=== PATIENT | female | born 1945 | race Caucasian/White ===

== ENCOUNTER 2024-06-21 18:34 | Emergency (ER) | payer MEDICARE, BC, SELFPAY ==
--- NOTE | ~2024-06-21 | XR_ITS ---
EXAMINATION: [id number] DATE: 06/21/2024 19:06 INDICATION: Left rib pain post fall TECHNIQUE: A frontal inspiratory view of the chest and 3 views of the left ribs were obtained. COMPARISON: None FINDINGS: No rib fractures identified. Lungs are clear with no focal airspace opacities, pulmonary edema, pleur al effusion or pneumothorax. Heart size is normal. Mild thoracolumbar dextrocurvature with moderate s pondylosis. Paraspinal surgical clips at the left upper quadrant. IMPRESSION: 1. No rib fracture or acute cardiopulmonary disease. Reviewed, dictated and finalized at location A.
[2024-06-21 18:47] VITALS: BP 153/97; PULSE 67; RESP 14; TEMP 36.2; O2SAT 97
--- NOTE | 2024-06-21 18:49 | ED.GENADULT ---
HPI - General Adult General Chief complaint: Chest Pain Stated complaint: fall Source: patient Mode of arrival: ambulatory Limitations: no limitations History of Present Illness HPI narrative: 78-year-old female presented for complaint of left lateral rib pain after a fall 2 days ago. She reports the pain is worse when taking deep breath, coughing or sneezing etc.. Has been taking ibuprofen. Patient states she tripped while wearing how shoes, and landed with both arms outstretched but also struck the right lower lip on the floor. Endorses some bruising and mild swelling but denies any pain to the lip. Related Data Home Medications Medication Instructions Recorded Confirmed aspirin 81 mg capsule 81 mg PO DAILY 01/25/24 06/21/24 atorvastatin 20 mg tablet 20 mg PO DAILY 01/25/24 06/21/24 biotin 5,000 mcg chewable tablet 5,000 mcg PO DAILY 01/25/24 06/21/24 black cohosh root extract 40 mg 40 mg PO DAILY 01/25/24 06/21/24 capsule carvedilol 6.25 mg tablet 6.25 mg PO Q12H 01/25/24 06/21/24 cholecalciferol (vitamin D3) 25 25 mcg PO DAILY 01/25/24 06/21/24 mcg (1,000 unit) capsule dapagliflozin propanediol 5 mg 5 mg PO DAILY 01/25/24 06/21/24 tablet (Farxiga) fluticasone 250 mcg-salmeterol 50 1 inh inhalation BID 01/25/24 06/21/24 mcg/dose blistr powdr for inhalation (Wixela Inhub) magnesium carbonate 250 mg capsule 250 mg PO DAILY 01/25/24 06/21/24 multivitamin (One-A-Day Essential 1 tablet PO DAILY 01/25/24 06/21/24 tablet) sacubitril 24 mg-valsartan 26 mg 1 tablet PO BID 01/25/24 06/21/24 tablet (Entresto) sertraline 50 mg tablet 50 mg PO DAILY 01/25/24 06/21/24 spironolactone 25 mg tablet 25 mg PO DAILY 01/25/24 06/21/24 Allergies Allergy/AdvReac Type Severity Reaction Status Date / Time tetracycline Allergy Mild Unknown Verified 06/21/24 18:50 Review of Systems Review of Systems: CONSTITUTIONAL: Denies body aches, fever, chills, or sweats. EYES: Denies visual changes ENT: Denies rhinorrhea, epistaxis CARDIOVASCULAR: Denies chest pain, palpitations, or edema. RESPIRATORY: Denies cough or dyspnea. GASTROINTESTINAL: Denies abdominal pain, nausea, vomiting, or diarrhea. SKIN: Denies wounds. MUSCULOSKELETAL: Reports left lateral rib pain Denies back pain, neck pain, joint pain NEUROLOGIC: Denies headache, numbness, tingling, or weakness. All systems reviewed & are unremarkable except as noted in HPI and below PMFSH Past Medical History Medical History Depression Heart disease High cholesterol Surgical History Surgical History History of hand surgery right History of hysterectomy History of kidney surgery Family History Family History Sibling Breast cancer Alzheimer disease Social History Social History Smoking status: Former smoker Second hand tobacco smoke exposure: No Alcohol intake: current Alcohol use details: rarely Substance use: never Substance use type: does not use Do You Feel Safe in your Home?: Yes Lack of Transportation: No Lack of Food: Never True Current Housing: I Have Housing Concerned About Future Housing: No Difficulty Paying Gas/Electric Bills: No Difficulty Paying for Meds: No Currently Unemployed: No Education: High School Diploma/GED Difficulty w/ Childcare or Family Care: No Living arrangements: with family Occupation/Education: retired Additional occupation/education comments: [employer] Gender identity (if verbalized by the patient): Female Comments At time of signature, I have reviewed and agree with nursing past medical, surgical, social and family history unless otherwise noted. Please see nursing chart for further information. There is no relevant family history pertinent to the presenting compla
[2024-06-21 18:52] VITALS: BP 153/97; PULSE 67; RESP 14; TEMP 36.2; O2SAT 97
== END 2024-06-21 19:35 | disposition home or self-care (01) ==
PROVIDERS: Emergency Provider Nurse Practitioner Family; PCP Family Medicine
DX: R07.81 Pleurodynia (principal); Z79.82 Long term (current) use of aspirin; Z79.899 Other long term (current) drug therapy; Z87.891 Personal history of nicotine dependence
CPT/HCPCS: 71101; 99213; G0463